=== PATIENT | female | born 1990 | race Asian ===

== ENCOUNTER 2025-08-17 07:38 | Day surgery (SDC) | payer OTHER ==
[2025-08-17] VITALS (14 sets, daily range): BP systolic 92–145; BP diastolic 52–95
[~2025-08-17] VITALS: Ht 157.5 cm; Wt 50.4 kg
[~2025-08-17 07:38] MED LIST: ADAPALENE45 G1 TOP; NIZORAL A-D125 ML TOP; SPIR25 PO
[2025-08-17] MEDS ORDERED: CeFAZolin Sodium 2,000 MG in NS 100 ML IV SCH (07:55)
[2025-08-17] MEDS ORDERED: CeFAZolin Sodium 2,000 MG VIAL ONE (08:24)
[2025-08-17] MEDS ORDERED: Bupivacaine 0.5% HCl 5 MG/ML 30MLVIAL ONE (08:42)
[2025-08-17] MEDS ORDERED: Midazolam HCl 1MG / ML 2ML Vial ONE (09:02)
[2025-08-17] MEDS ORDERED: Midazolam HCl 1MG / ML 2ML Vial IV ONE (09:05)
[2025-08-17] MEDS ORDERED: FentaNYL Citrate 50 MCG/ML 2 ML Injection ONE (09:28)
[2025-08-17] MEDS ORDERED: Ondansetron HCl 2 MG / ML 2ML Vial ONE (09:33)
[2025-08-17] MEDS ORDERED: Dexamethasone Sod Phos 10 MG/ML 1ML VIAL ONE (09:33)
[2025-08-17] MEDS ORDERED: Rocuronium Bromide 10 MG/ML 5ML Injection IV ONE (09:33)
[2025-08-17] MEDS ORDERED: Ketorolac Tromethamine 30mg Vial ONE ×2 (09:33→10:10)
[2025-08-17] MEDS ORDERED: Albuterol 2.5 MG/3 ML VIAL INH PRN ×2 (09:45→10:35)
[2025-08-17] MEDS ORDERED: FentaNYL Citrate 50 MCG/ML 2 ML Injection IV PRN ×4 (09:45→10:30)
[2025-08-17] MEDS ORDERED: HYDROmorphone HCl/Pf 1MG SYR IV PRN ×4 (09:45→10:30)
[2025-08-17] MEDS ORDERED: Labetalol HCL 5 MG/ML 4ML Injection (Single Dose) ONE (09:49)
[2025-08-17] MEDS ORDERED: Ondansetron HCl 2 MG / ML 2ML Vial IV PRN ×2 (09:50→10:35)
[2025-08-17] MEDS ORDERED: Sugammadex Sodium 200 MG/2ML SDV (100 MG/ML) ONE (10:11)
[2025-08-17] MEDS ORDERED: HYDROcodone 5-APAP 325 TAB PO PRN (10:30)
--- NOTE | 2025-08-17 12:38 | NUR ---
TO STEP POST UMBILICAL HERNIA REPAIR. DENIES PAIN, GAUZE/CLEAR DRESSING CDI. NO DRAINAGE NOTED. REPORTS MILD NAUSEA WITH SMALL AMT CLEAR EMESIS. 4MG ZOFRAN GIVEN IV. HYPOTENSIVE AT BASELINE, 500CC LR BOLUS GIVEN, OK'D PER DR. DOW. FAMILY AT BEDSIDE, VERBALIZED UNDERSTANDING OF DC INSTRUCTIONS. ORTHOSTATICS AT BEDSIDE, MARY ANNE WELL. DRESSED WITH ASSIST. DC'D IV INTACT. DC'D VIA WC TO PRIVATE CAR WITH BELONGINGS. ICE THERAPY PROVIDED. DECLINED PO PAIN MEDS AT THIS TIME.
== END 2025-08-17 12:30 | disposition home or self-care (01) ==
LOC: ORSCMMR 07:38 → ORD 09:00 → ORSCMMR 12:30
PROVIDERS: Surgery
PROC: 0WUF0JZ Supplement Abdominal Wall with Synthetic Substitute, Open Approach (ICD-10-PCS; principal; 2025-08-17 09:00)
DX: K43.2 Incisional hernia without obstruction or gangrene (principal)
CPT/HCPCS: C1781; J0690; J1100; J1885; J2250; J2405; J2704; J3010; J7120